=== PATIENT | male | born 1950 | race Hispanic/Latino ===

== ENCOUNTER 2021-07-25 12:28 | Emergency (ER) | payer MEDICARE ==
[~2021-07-25] VITALS: Ht 167.6 cm; Wt 86.2 kg
[2021-07-25 13:26] VITALS: BP 183/66
== END 2021-07-25 13:18 | disposition home or self-care (01) ==
LOC: ER 13:00
DX: R33.9 Retention of urine, unspecified (principal); I10 Essential (primary) hypertension; E11.9 Type 2 diabetes mellitus without complications; F03.90 Unspecified dementia, unspecified severity, without behavioral disturbance, psychotic disturbance, mood disturbance, and anxiety; I25.2 Old myocardial infarction; Z95.1 Presence of aortocoronary bypass graft; Z86.73 Personal history of transient ischemic attack (TIA), and cerebral infarction without residual deficits
CPT/HCPCS: 51700; 99282

== ENCOUNTER 2022-01-24 11:53 | Emergency (ER) | payer MEDICARE ==
[~2022-01-24] VITALS: Ht 167.6 cm; Wt 86.2 kg
[2022-01-24 14:20] LABS: CLARITY,URINE TURBID (CLEAR); COLOR,URINE YELLOW (YELLOW); KETONES,URINE NEGATIVE (NEGATIVE); LEUKOCYTE ESTERASE ,URINE SMALL (NEGATIVE); NITRITE,URINE NEGATIVE (NEGATIVE); PROTEIN,URINE DIPSTICK 2+ (NEGATIVE); URINE UROBILINOGEN 0.2 mg/dL (0.2 - 1)
[2022-01-24 14:26] LABS: BACTERIA,URINE FEW /HPF; EPITHELIAL CELLS,URINE FEW /LPF; RBC,URINE >50 /HPF (0-5); WBC,URINE (MAN) >50 /HPF (0-5)
== END 2022-01-24 14:10 | disposition home or self-care (01) ==
LOC: ER 11:59
DX: Z46.6 Encounter for fitting and adjustment of urinary device (principal); N39.0 Urinary tract infection, site not specified; F03.90 Unspecified dementia, unspecified severity, without behavioral disturbance, psychotic disturbance, mood disturbance, and anxiety; I10 Essential (primary) hypertension; E11.9 Type 2 diabetes mellitus without complications; I25.2 Old myocardial infarction; Z86.73 Personal history of transient ischemic attack (TIA), and cerebral infarction without residual deficits; Z95.1 Presence of aortocoronary bypass graft
CPT/HCPCS: 51700; 81001; 87086; 87186; 99283